=== PATIENT | female | born 1970 | race Two or more races ===

== ENCOUNTER 2017-01-19 18:12 | Emergency (ER) | payer OTHER, MEDICAID ==
--- NOTE | 2017-01-19 18:31 | ER Document Report ---
ED Medical Screen (RME) - General Stated Complaint: FALL/HEAD PAIN Notes: She states she fell hitting her head on concrete today. Patient states she was dizzy still feels groggy. Sent to the emergency room from [facility] [place] for CT scan. Patient complains of nausea but no vomiting. Also complains of pain to the right shoulder and left knee. She states pain level 5 out of 5. Patient fell from standing position striking the right side of her head. I have greeted and performed a rapid initial assessment of this patient. A comprehensive ED assessment and evaluation of the patient, analysis of test results and completion of the medical decision making process will be conducted by additional ED providers. TRAVEL OUTSIDE OF THE [place] IN LAST 30 DAYS: No - Related Data Allergies/Adverse Reactions: oxycodone HCl [From Percocet] Allergy (Intermediate, Verified 01/19/17 18:28) Hives Past Medical History Pulmonary Medical History: Reports: Hx Asthma Past Surgical History: Reports: Hx Section - x1, Hx Gynecologic Surgery - cervical surclagex2, Hx Tonsillectomy - Immunizations Hx Diphtheria, Pertussis, Tetanus Vaccination: Yes Physical Exam - Vital signs Vitals: Temp Pulse Resp BP Pulse Ox 98.7 F 86 16 130/78 H 97 01/19/17 18:18 01/19/17 18:18 01/19/17 18:18 01/19/17 18:18 01/19/17 18:18 - Notes Notes: Patient walks into triage with steady gait. - HEENT Conjunctiva: Normal Extraocular movements intact: Yes Pupils: PERRL - Neurological Cognition: Normal Orientation: AAOx4 Course - Vital Signs Vital signs: Temp Pulse Resp BP Pulse Ox 98.7 F 86 16 130/78 H 97 01/19/17 18:18 01/19/17 18:18 01/19/17 18:18 01/19/17 18:18 01/19/17 18:18
--- NOTE | 2017-01-19 21:19 | ER Document Report ---
ED Fall - General Mode of Arrival: Ambulatory Information source: Patient TRAVEL OUTSIDE OF THE [place] IN LAST 30 DAYS: No - HPI Patient complains to provider of: Pain secondary to fall Occurred: This evening Context: Lost balance, Fell from standing Associated symptoms: Other - see HPI. denies: Lost consciousness Location of injury/pain: Other - see HPI - General Chief Complaint: Fall Stated Complaint: FALL/HEAD PAIN Notes: 47 year old female presents to the ED complaining of headache, upper back pain , right ankle pain, right arm pain, and abrasions to the posterior aspect of the left knee secondary to a fall that occurred earlier this evening. Patient reports that she was cleaning a clothing machine when she lost balance and proceeded to fall. Patient knew that there was a "conventional fan" behind her so she fell to the side and braced herself with her right arm. Patient states that she was dazed for approximately 10 minutes after the fall, but did not lose consciousness. (RONALD NEVES) - Related data Allergies/Adverse Reactions: oxycodone HCl [From Percocet] Allergy (Intermediate, Verified 01/19/17 18:28) Hives Past Medical History - General Information source: Patient - Social History Smoking Status: Current Every Day Smoker Chew tobacco use (# tins/day): No Frequency of alcohol use: None Drug Abuse: None Family History: DM, Hypertension Patient has suicidal ideation: No Patient has homicidal ideation: No Pulmonary Medical History: Reports: Hx Asthma Renal/ Medical History: Denies: Hx Peritoneal Dialysis Past Surgical History: Reports: Hx Section - x1, Hx Gynecologic Surgery - cervical surclagex2, Hx Tonsillectomy - Immunizations Hx Diphtheria, Pertussis, Tetanus Vaccination: Yes Review of Systems - Review of Systems Constitutional: No symptoms reported EENT: No symptoms reported Cardiovascular: No symptoms reported Respiratory: No symptoms reported Gastrointestinal: No symptoms reported Genitourinary: No symptoms reported Female Genitourinary: No symptoms reported Musculoskeletal: See HPI, Back pain - upper, Joint pain - right ankle and left knee, Other - right arm pain Skin: No symptoms reported Hematologic/Lymphatic: No symptoms reported Neurological/Psychological: See HPI, Headaches -: Yes All other systems reviewed and negative Physical Exam - General General appearance: Alert In distress: None - HEENT Head: Normocephalic, Atraumatic Eyes: Normal Extraocular movements intact: Yes Pupils: PERRL - Respiratory Respiratory status: No respiratory distress Breath sounds: Normal - Cardiovascular Rhythm: Regular Heart sounds: Normal auscultation - Abdominal Inspection: Normal - Back Back: Tender - mild cervical paraspinal tenderness to palpation that extends to the interscapular region. Right scapular muscle is tender to palpate. - Extremities General upper extremity: Normal inspection, Normal ROM General lower extremity: No: Normal inspection - see knee exam below Knee: Tender - mild left popliteal tenderness to palpation - Neurological Neuro grossly intact: Yes Cognition: Normal Orientation: AAOx4 Sherry Coma Scale Eye Opening: Spontaneous [place] Coma Scale Verbal: Oriented Sherry Coma Scale Motor: Obeys Commands Sherry Coma Scale Total: 15 Speech: Normal - Psychological Associated symptoms: Normal affect, Normal mood - Skin Skin Temperature: Warm Skin Moisture: Dry Skin Color: Normal Discharge - Discharge Clinical Impression: Contusion of head, Muscle strain Condition: Good Disposition: HOME, SELF-CARE Instructions: Muscle Strain ([facility]) Additional Instructions: Apply ice to areas of pain and swelling for 20 minutes at a time the next 24 hours. Use an anti-inflammatory such as ibuprofen or Aleve for discomfort. Prescriptions: Methocarbamol [Robaxin 750 mg Tablet] 750 mg PO Q6HP PRN #20 tablet PRN Reason: For Muscle Pain Ibuprofen [Motrin 600 Mg Tablet] 600 mg PO TID #15 tablet Forms: Elevated Blood Pressure Referrals: DALILA ARNOLD MD [Primary Care Provider] - Follow up in 1 week Scribe Attestation: 01/19/17 21:32 I personally performed the services described in the documentation, reviewed and edited the documentation which was dictated to the scribe in my presence, and it accurately records my words and actions. (TYRELL MILLER) Scribe Documentation - Scribe Written by Ligia:: Ligia Thompson, 01/19/2017 2134 acting as scribe for :: Dio
[2017-01-20 02:45] VITALS: BP 125/83
== END 2017-01-19 21:35 | disposition home or self-care (01) ==
LOC: ER 18:12
DX: S00.93XA Contusion of unspecified part of head, initial encounter (principal); S80.212A Abrasion, left knee, initial encounter; R51 Headache; M54.6 Pain in thoracic spine; M25.571 Pain in right ankle and joints of right foot; M79.601 Pain in right arm; W19.XXXA Unspecified fall, initial encounter; F17.200 Nicotine dependence, unspecified, uncomplicated
CPT/HCPCS: 70450; 99284

== ENCOUNTER 2018-08-12 23:14 | Emergency (ER) | payer MEDICAID, OTHER ==
[2018-08-12 23:24] VITALS: BP 131/75
--- NOTE | 2018-08-12 23:51 | RADIOLOGY REPORT (SQ) ---
EXAM DESCRIPTION: XR KNEE 4 OR MORE VIEWS COMPLETED DATE/TME: 08/12/2018 23:20 CLINICAL HISTORY: 48 years Female, injury COMPARISON: None. Findings: Small right knee effusion. Bones, joints, and soft tissues of the RIGHT XR KNEE 5 VIEWS appear otherwise intact. IMPRESSION: Small right knee effusion.
[2018-08-13] MEDS ORDERED: NAPROXEN 250 MG TABLET PO ONE (01:17)
--- NOTE | 2018-08-13 01:19 | ER Document Report ---
ED General - General Chief Complaint: Knee Pain Stated Complaint: KNEE PAIN Time Seen by Provider: 08/13/18 00:34 Notes: Patient is a 48-year-old female without chronic medical problems who presents with right knee pain and swelling. She reports that this started yesterday after she was moving a desk with her boss at work, he apparently dropped his an early causing her to twist her right knee. Since that time she has had a constant, throbbing, aching pain to the knee. She states walking worsens the pain. She has not tried anything to improve the pain. No history of similar injuries in the past. She is able to bear weight. She denies any additional injuries. She has not seen her general doctor regarding today's concerns. TRAVEL OUTSIDE OF THE [place] IN LAST 30 DAYS: No - Related Data Allergies/Adverse Reactions: oxycodone HCl [From Percocet] Allergy (Intermediate, Verified 08/12/18 23:15) Hives Past Medical History - General Information source: Patient - Social History Smoking Status: Never Smoker Frequency of alcohol use: None Drug Abuse: None Lives with: Family Family History: DM, Hypertension Patient has suicidal ideation: No Patient has homicidal ideation: No Pulmonary Medical History: Reports: Hx Asthma Renal/ Medical History: Denies: Hx Peritoneal Dialysis Past Surgical History: Reports: Hx Section - x1, Hx Gynecologic Surgery - cervical surclagex2, Hx Tonsillectomy - Immunizations Hx Diphtheria, Pertussis, Tetanus Vaccination: Yes Review of Systems - Review of Systems Notes: Constitutional: Negative for fever. HENT: Negative for sore throat. Eyes: Negative for visual changes. Cardiovascular: Negative for chest pain. Respiratory: Negative for shortness of breath. Gastrointestinal: Negative for abdominal pain, vomiting or diarrhea. Genitourinary: Negative for dysuria. Musculoskeletal: Positive for right knee pain Skin: Negative for rash. Neurological: Negative for headaches, weakness or numbness. 10 point ROS negative except as marked above and in HPI. Physical Exam - Vital signs Vitals: Temp Pulse Resp BP Pulse Ox 97.7 F 81 20 131/75 H 99 08/12/18 23:22 08/12/18 23:22 08/12/18 23:22 08/12/18 23:22 08/12/18 23:22 Interpretation: Normal Notes: PHYSICAL EXAMINATION: GENERAL: Well-appearing, well-nourished and in no acute distress. HEAD: Atraumatic, normocephalic. EYES: sclera anicteric, conjunctiva are normal. ENT: Moist mucous membranes. NECK: Normal range of motion LUNGS: Normal work of breathing HEART: 2+ DP pulses bilaterally. EXTREMITIES: Mild swelling of the right knee. Full flexion and extension without limited range of motion. Able to hold the knee in full extension without difficulty. NEUROLOGICAL: No focal neurological deficits. Moves all extremities spontaneously and on command. PSYCH: Normal mood, normal affect. SKIN: Warm, Dry, normal turgor, no rashes or lesions noted. Course - Re-evaluation Re-evalutation: 08/13/18 01:18 No evidence of a septic joint, gout flare, dislocation, or fracture on exam and imaging. Suspect likely ligamentous injury based on exam and history. Patient has been placed in an Ralph wrap, crutches as needed. NSAID therapy has been advised. Vitals wnl. At this time, I do not see an indication for labs or further imaging. I have discussed with the patient that an MRI would be the definitive test for clarifying the source of the swelling although I would not advise this test until she has had failure of symptoms to resolve within the next 2-3 weeks. Orthopedic surgical follow-up has been advised. At this time will discharge with return precautions and follow-up recommendations. Verbal discharge instructions given a the bedside and opportunity for questions given. Medication warnings reviewed. Patient is in agreement with this plan and has verbalized understanding of return precautions and the need for primary care follow-up in the next 24-72 hours. - Vital Signs Vital signs: Temp Pulse Resp BP Pulse Ox 97.7 F 81 20 131/75 H 99 08/12/18 23:22 08/12/18 23:22 08/12/18 23:22 08/12/18 23:22 08/12/18 23:22 - Diagnostic Test Radiology reviewed: Image reviewed, Reports reviewed Radiology results interpreted by me: 08/13/18 01:19 Right knee x-ray: No acute fracture or dislocation Discharge - Discharge Clinical Impression: Right knee injury Qualifiers: Encounter type: initial encounter Qualified Code(s): S89.91XA - Unspecified injury of right lower leg, initial encounter Right knee pain Qualifiers: Chronicity: acute Qualified Code(s): M25.561 - Pain in right knee Condition: Good Disposition: HOME, SELF-CARE Additional Instructions: Your x-ray does not show any acute fracture today. You likely have a ligamentous strain. You should continue to take anti-inflammatories such as ibuprofen 600 mg every 6 hours. Continue to apply ice to the area is much your able. Please follow-up with your primary care physician if you do not have improving your symptoms in the next 1-2 weeks. Please return immediately if you develop weakness, numbness, spreading redness from the area, or any other symptoms that are concerning to you. Referrals: DANIA FRANZ PA-C [Primary Care Provider] - Follow up as needed RASHEL JULIO MD [ACTIVE STAFF] - Follow up as needed
== END 2018-08-13 01:32 | disposition home or self-care (01) ==
LOC: ER 23:14
DX: S89.91XA Unspecified injury of right lower leg, initial encounter (principal); M25.561 Pain in right knee; M25.461 Effusion, right knee; X50.1XXA Overexertion from prolonged static or awkward postures, initial encounter; Y93.89 Activity, other specified; Y99.0 Civilian activity done for income or pay; J45.909 Unspecified asthma, uncomplicated; Z88.5 Allergy status to narcotic agent
CPT/HCPCS: 99283